=== PATIENT | male | born 2000 | race Caucasian/White ===

== ENCOUNTER 2022-06-07 08:54 | Emergency (ER) | payer MEDICAID, SELFPAY ==
[2022-06-07 09:04] VITALS: BP 132/73; PULSE 93; RESP 18; TEMP 36.6; O2SAT 99; BMI 24.4
--- NOTE | 2022-06-07 09:40 | XR_ITS ---
FINAL REPORT CLINICAL HISTORY: rolled ankle last night pain on lateral side of ankle FINDINGS: AP, oblique, and lateral views of the left ankle were obtained. There is no prior exam for comparison. There is no fracture or dislocation. The ankle mortise is intact. There is lateral soft tissue swelling. IMPRESSION: No acute osseous abnormality of the left ankle. Lateral soft tissue swelling. Reviewed, Interpreted and Dictated by Quinn Lemus MD Transcribed by Vijay Walker Authenticated and [facility]
--- NOTE | 2022-06-07 09:40 | XR_ITS ---
FINAL REPORT CLINICAL HISTORY: rolled ankle pain on lateral side ankle FINDINGS: LEFT FOOT SERIES 3 views of the left foot were obtained. There is no acute fracture or dislocation. Visualized joint spaces are normally aligned. Soft tissues are unremarkable. IMPRESSION: No acute bony abnormality. Reviewed, Interpreted and Dictated by Quinn Lemus MD Transcribed by Vijay Walker Authenticated and [facility]
--- NOTE | 2022-06-07 09:41 | EXP.UTC ---
Discharge Plan Disposition Patient Disposition: Home, Self-Care Condition: Good Prescriptions Prescriptions: New ibuprofen [IBU] 800 mg tablet 800 mg PO Q8HP PRN (Reason: Moderate Pain) Qty: 30 0RF Referrals Follow up/Referrals: Provider,Referral, MD [Primary Care Provider] - See instructions Maryam Harry DPM [Staff Physician] - See instructions Activity Restrictions/Add. Instructions Additional Instructions/Restrictions: Rest the extremity, apply ice for 15 minutes as tolerated three or four times per day, Elevate the extremity as tolerated while you are resting. Take ibuprofen for pain. I sent in a prescription to your pharmacy. Follow up with Dr. Harry (podiatry). I put in a referral but you need to call her office and schedule an appointment. Follow up with your regular doctor. GO TO THE ER FOR ANY WORSENING SYMPTOMS Clinical Impressions Clinical Impression: Left ankle sprain, Sprain of left foot Stand Alone Forms Stand Alone Forms: Work/School Release Instructions Patient Instructions: Ankle Sprain, DI for Ankle Sprain Discharge ED Provider: Lokesh Minor [facility] General Stated complaint: Left ankle 06/06/22 @11:15pm [place] [facility] Mode of Arrival: Ambulatory Source of Information: Patient Time Seen by Provider: 06/07/22 09:40 Description of Symptoms (Recalled from Triage Doc. by RN): pt comes in with c/o left ankle pain. pt states he was walking across the yard last night and twisted his ankle. History of Present Illness Provider Complaint: He states that last night he was walking in his yard when he twisted his left foot. He has had pain and swelling of that ankle since then. When he tries to walk on it it makes his pain worse. Related Data Previous Rx's Medication Instructions Recorded ibuprofen 800 mg tablet (IBU) 800 mg PO Q8HP PRN Moderate Pain 06/07/22 #30 tabs Allergies Allergy/AdvReac Type Severity Reaction Status Date / Time Penicillins [PENICILLINS] Allergy Mild Verified 06/07/22 10:02 [facility] Disclaimer: The information contained in this section may have been updated after the patient was seen, as this information can be updated by other users. Social History Smoking Status: Never smoker alcohol intake: never current occupational status: employed Travel in the last 8 weeks: None ROS Obtained: Yes All systems reviewed & no additional complaints except as documented Constitutional Constitutional: Denies chills and Denies fever(s) Eyes Eyes: Denies eye discharge ENT Ears, Nose, Mouth, and Throat: Denies dizziness, Denies otalgia and Denies sore throat Cardiovascular Cardiovascular: Denies chest pain Respiratory Respiratory: Denies shortness of breath, Denies chest congestion, Denies cough, Denies stridor and Denies wheezing Gastrointestinal Gastrointestingal: Denies nausea or vomiting Musculoskeletal Musculoskeletal: Reports as per HPI Integumentary/Breasts Skin/Breast: Denies rash Neurologic Neurologic: Denies dizziness and Denies paresthesias Allergic/Immunologic Allergic/Immunologic: Denies wheezing Physical Exam General General appearance: alert and in no apparent distress Head Head exam: atraumatic, normocephalic and normal inspection Eye Eye exam: Present normal appearance, PERRL and EOMI ENT ENT exam: Present normal exam, normal oropharynx, mucous membranes moist, TM's normal bilaterally and normal external ear exam Neck Neck exam: Present normal inspection, full ROM and trachea midline; Absent meningismus or lymphadenopathy Chest Chest inspection: Present normal inspection and symmetric chest wall rise; Absent tenderness Respiratory Respiratory exam: Present normal lung sounds bilaterally; Absent respiratory distress Cardiovascular Cardiovascular exam: Present regular rate and normal rhythm; Absent JVD Abdominal Exam Abdominal exam: Present soft and normal bowel sounds; Absent
[2022-06-07 09:45] VITALS: BP 132/73; PULSE 93; RESP 20; TEMP 36.6; O2SAT 99; BMI 11.0
[2022-06-07 11:09] VITALS: BP 132/73; PULSE 93; RESP 20; TEMP 36.6; O2SAT 99
== END 2022-06-07 11:09 | disposition home or self-care (01) ==
PROVIDERS: Emergency Provider Nurse Practitioner Family
DX: S93.402A Sprain of unspecified ligament of left ankle, initial encounter (principal); S93.602A Unspecified sprain of left foot, initial encounter
CPT/HCPCS: 73610; 73630; 99212; 99213; G0463

== ENCOUNTER 2022-06-20 11:53 | Emergency (ER) | payer MEDICAID, SELFPAY ==
[2022-06-20 12:50] VITALS: BP 126/75; PULSE 63; RESP 20; TEMP 37.1; O2SAT 99; BMI 23.0
--- NOTE | 2022-06-20 13:15 | EXP.UTC ---
Discharge Plan Disposition Patient Disposition: Home, Self-Care Condition: Good Prescriptions Prescriptions: New azithromycin [Zithromax Z-Nicko] 250 mg tablet See Rx Instructions .ROUTE .COMPLEX 5 Days Qty: 6 0RF Rx Instructions: For 250 mg dose pack: take 500 mg today (day 1), then 250 mg for 4 days (days 2-5) nystatin 100,000 unit/mL suspension 4 ml PO Q6H 10 Days Qty: 160 0RF Rx Instructions: swish and spit No Action ibuprofen [IBU] 800 mg tablet 800 mg PO Q8HP PRN (Reason: Moderate Pain) Qty: 30 0RF Referrals Follow up/Referrals: Provider,Referral, MD [Primary Care Provider] - See instructions Activity Restrictions/Add. Instructions Additional Instructions/Restrictions: Swish and spit as advised Follow up with dentist call tomorrow and make appointment Return if needed Straight to ER if any life threatening symptoms Clinical Impressions Clinical Impression: Candidiasis of mouth Instructions Patient Instructions: DI for Strep Throat, DI for Thrush, Thrush-Adult Discharge ED Provider: Johanna Holland [facility] General Stated complaint: Blisters in mouth and tongue Mode of Arrival: Ambulatory Source of Information: Patient Limitations: No Limitations Time Seen by Provider: 06/20/22 13:15 Description of Symptoms (Recalled from Triage Doc. by RN): PATIENT C/O SORENESS AND POSSIBLE BLISTERS TO MOUTH AND TONGUE X 5-6 DAYS HEENT Symptoms (Recalled from RN notes): Yes Resp Symptoms (Recalled from RN notes): No Skin Symptoms (Recalled from RN notes): No MS Symptoms (Recalled from RN notes): No Functional Status (Recalled from RN notes): WNL History of Present Illness Provider Complaint: Patient states that he has been having pain in his right back tooth and the gum area feels sore hard to chew on that side States that also looks like he has a white film on his tongue and the roof of his mother feels sore and irritated Related Data Previous Rx's Medication Instructions Recorded ibuprofen 800 mg tablet (IBU) 800 mg PO Q8HP PRN Moderate Pain 06/07/22 #30 tabs azithromycin 250 mg tablet See Rx Instructions PO .COMPLEX 5 06/20/22 (Zithromax Z-Nicko) days #6 tabs nystatin 100,000 unit/mL oral 4 ml PO Q6H 10 days #160 mL 06/20/22 suspension Allergies Allergy/AdvReac Type Severity Reaction Status Date / Time Penicillins [PENICILLINS] Allergy Mild Verified 06/07/22 10:02 Worker's Comp Is this a Worker's Comp case?: No [facility] Disclaimer: The information contained in this section may have been updated after the patient was seen, as this information can be updated by other users. Medical History (Updated 06/20/22 @ 13:22 by Johanna Holland APRN) Asthma Social History (Updated 06/20/22 @ 13:08 by Татьяна Oakley RN) Smoking Status: Never smoker alcohol intake: never current occupational status: employed Travel in the last 8 weeks: None ROS Obtained: Yes All systems reviewed & no additional complaints except as documented and Yes Systems reviewed as appropriate & no additional complaints except as documented Constitutional Constitutional: Reports system reviewed and no additional complaints, except as documented and Reports as per HPI Eyes Eyes: Reports system reviewed and no additional complaints, except as documented and Reports as per HPI ENT Ears, Nose, Mouth, and Throat: Reports system reviewed and no additional complaints, except as documented, Reports as per HPI and Reports sore throat Comments: White film on tongue and sore area in right side back of mouth Cardiovascular Cardiovascular: Reports system reviewed and no additional complaints, except as documented and Reports as per HPI Respiratory Respiratory: Reports system reviewed and no additional complaints, except as documented and Reports as per HPI Gastrointestinal Gastrointestingal: Reports system reviewed and no additional complaints, except as documented and as per HPI Physical Exam
[2022-06-20 13:31] LABS: UTC Strep Screen (Rapid) Positive (Negative)
[2022-06-20 13:53] VITALS: BP 126/75; PULSE 63; RESP 20; TEMP 37.1; O2SAT 99
== END 2022-06-20 14:02 | disposition home or self-care (01) ==
PROVIDERS: Emergency Provider Nurse Practitioner
DX: J02.0 Streptococcal pharyngitis (principal); B37.0 Candidal stomatitis
CPT/HCPCS: 87880; 99212; 99213; G0463

== ENCOUNTER 2022-08-16 23:53 | Emergency (ER) | payer MEDICAID, SELFPAY ==
[2022-08-16 23:54] VITALS: BP 124/80; PULSE 77; RESP 16; TEMP 36.8; O2SAT 99; BMI 23.0
--- NOTE | 2022-08-17 00:08 | XR_ITS ---
PROCEDURE INFORMATION: Exam: XR Left Hand Exam date and time: 08/17/2022 12:08 AM Age: 22 years old Clinical indication: Injury or trauma; Other: Laceration; Hand; Left; Additional info: Laceration near mcp left index index finger TECHNIQUE: Imaging protocol: Radiologic exam of the left hand. Views: 3 or more views. COMPARISON: No relevant prior studies available. FINDINGS: Bones/joints: Normal. Soft tissues: Normal. No no radiopaque foreign body identified. No soft tissue air identified. IMPRESSION: No acute findings.
--- NOTE | 2022-08-17 00:20 | HMH.EDWNDL ---
Discharge Plan Disposition Patient Disposition: Home, Self-Care Chief Complaint: Wound/Laceration Prescriptions Prescriptions: No Action No Known Home Medications Referrals Follow up/Referrals: Provider,Evelyn, [Primary Care Provider] - See instructions Clinical Impressions Clinical Impression: Laceration Instructions Patient Instructions: DI for Laceration Repair Discharge ED Provider: Herbert (ED),Liam Ceballos Wound/Laceration HPI General Chief Complaint: Wound/Laceration Stated Complaint: hand cut on knife AO 2340 Time Seen by Provider: 08/17/22 00:20 Mode of Arrival: Family Vehicle Source of Information: Patient, Relative and Medical Record Limitations: No Limitations Description of Symptoms (Recalled from ER Triage Doc. by RN): Pt c/o laceration to left hand as he was attempting to pry frozen hamburger aprat with a knife . States he is not UTD on a tetanus vaccination but is refusing it at this time. Blood is oozing from laceration site. The wound is near the MCP joint on left index finger. Pt can move finger & hand without pain or difficulty. [employer] to indez finger is WNL. History of Present Illness HPI narrative: lac to dorsum of lt hand as noted above Onset (ago): hour(s) Extremity Location: Left: hand Place: home Patient tetanus UTD: No Context: sharp object use Associated symptoms: none Related Data Home Medications Medication Instructions Recorded Confirmed No Known Home Medications 08/17/22 08/17/22 Allergies Allergy/AdvReac Type Severity Reaction Status Date / Time Penicillins [PENICILLINS] Allergy Mild Verified 06/07/22 10:02 [facility] Disclaimer: The information contained in this section may have been updated after the patient was seen, as this information can be updated by other users. Medical History (Updated 08/17/22 @ 00:44 by Liam Godinez (ED)MD) Asthma Social History (Updated 06/20/22 @ 13:08 by Татьяна Oakley RN) Smoking Status: Current every day smoker alcohol intake: never current occupational status: employed Travel in the last 8 weeks: None ROS Obtained: Yes All systems reviewed & no additional complaints except as documented Physical Exam General General appearance: alert Head Head exam: normocephalic Eye Eye exam: Present PERRL and EOMI ENT ENT exam: Present mucous membranes moist Neck Neck exam: Present trachea midline Respiratory Respiratory exam: Absent respiratory distress Cardiovascular Cardiovascular exam: Present regular rate Abdominal Exam Abdominal exam: Present soft Extremities Exam Extremities exam: Present full ROM Neurological Exam Neurological exam: Present alert, oriented X3 and CN II-XII intact; Absent motor sensory deficit Skin Skin exam: Present other (2 cm flap like lac and neurovascular ok and tendon ok and no fb - xray clear by my review) Medical Decision Making Medical Records Medical records reviewed: Yes I reviewed the patient's medical records. Kiet Inquiry Pt receiving controlled substance: No Vital Signs: 08/16/22 23:54 08/17/22 00:38 Temperature 98.2 F 98.2 F Temperature Source Oral Oral Pulse Rate 69 Pulse Rate [Right] 77 Respiratory Rate 16 16 Blood Pressure 119/74 Blood Pressure [Right Arm] 124/80 Blood Pressure Mean [Right Arm] 94 Blood Pressure Source [Right Arm] Automatic Cuff 02 Sat by Pulse Oximetry 99 Oxygen Delivery Method Room Air Lab Data Lab results reviewed: Yes I reviewed the patient's lab results. Orders (Tests/Meds): ED MEDICATIONS Discontinued Medications Generic Name Dose Route Start Last Admin Trade Name Iliana PRN Reason Stop Dose Admin Lidocaine HCl 10 ml 08/17/22 00:09 08/17/22 00:24 Lidocaine 1% 10ml Mdv SQ 08/17/22 00:10 10 ml ONCE ONE Administration Tetanus/Reduced Diphtheria/Acell Pertussis 0.5 ml 08/17/22 00:09 08/17/22 00:16 Tet/Diphth/Pert-Adult 0.5ml Syringe IM 08/17/22 00:10 0.5 ml .ONCE
--- NOTE | 2022-08-17 00:34 | PC.NURSE ---
at bedside to suture wound
[2022-08-17 00:38] VITALS: BP 119/74; PULSE 69; RESP 16; TEMP 36.8; O2SAT 99
== END 2022-08-17 00:44 | disposition home or self-care (01) ==
PROVIDERS: Emergency Provider Emergency Medicine
DX: S61.412A Laceration without foreign body of left hand, initial encounter (principal); F17.200 Nicotine dependence, unspecified, uncomplicated; W26.0XXA Contact with knife, initial encounter; Y93.G1 Activity, food preparation and clean up
CPT/HCPCS: 12041; 73130; 90471; 90715; 96372; 99283; 99284

== ENCOUNTER 2022-08-18 02:09 | Emergency (ER) | payer MEDICAID, SELFPAY ==
[2022-08-18 02:24] VITALS: BP 0/0; PULSE 0; RESP 0; TEMP -17.7; TEMP 0; O2SAT 0
== END 2022-08-18 02:24 | disposition left against medical advice (07) ==
LOC: ER 02:23
PROVIDERS: Emergency Provider Emergency Medicine
DX: Z53.21 Procedure and treatment not carried out due to patient leaving prior to being seen by health care provider (principal)
CPT/HCPCS: 99211